=== PATIENT | female | born 1930 | race Caucasian/White ===

== ENCOUNTER 2019-03-29 10:29 | Emergency (ER) | payer OTHER ==
[~2019-03-29] VITALS: Ht 154.9 cm; Wt 68.0 kg
[~2019-03-29 10:29] MED LIST: ADALAT CC30 MG; ASPIR-TRIN325 MG; BONINE25 MG; COZAAR100 MG; PRAVASTATIN SOD40 MG; PROVENTIL3 ML/2.5 M IH; SYNTHROID50 MCG
== END 2019-03-29 19:59 | disposition home or self-care (01) ==
LOC: ER 10:29 → EDBD 11:05 → ER 11:05
DX: S80.02XA Contusion of left knee, initial encounter (principal); S80.01XA Contusion of right knee, initial encounter; W18.39XA Other fall on same level, initial encounter; Y93.89 Activity, other specified; Y92.098 Other place in other non-institutional residence as the place of occurrence of the external cause; Y99.8 Other external cause status